=== PATIENT | female | born 1975 ===

== ENCOUNTER 2024-04-17 08:53 | Outpatient (AMB) | payer OTHER, SELFPAY ==
--- NOTE | 2024-04-17 08:57 | A.OFFVIS_ITS ---
Vital Signs 04/17/24 09:03 Height 5 ft 4 in Weight 184 lb 8.43 oz BMI 31.7 BP 136/68 Blood Pressure Location Rt brachial Position Sitting Pulse 67 Pulse Source Pulse Oximeter Pulse Oximetry (%) 96 Oxygen Delivery Method Room Air Intake Visit Reasons: Fibromyalgia Intake Note: New patient, externally referred by [facility], presents to office today for FM. [employer] Required: No Accompanied by: Self / Same As Patient Allergies No Known Allergies Allergy (Verified 04/17/24 09:04) Medication List - Last Reconciled 04/17/24 by Africa Alicea MD cholecalciferol (vitamin D3) 50 mcg PO DAILY duloxetine (Cymbalta) 60 mg PO DAILY ibuprofen 800 mg PO Q8H PRN loratadine 10 mg PO DAILY omeprazole 20 mg PO DAILY sennosides (senna) 8.6 mg PO BID topiramate 100 mg PO BEDTIME topiramate 50 mg PO DAILY HPI Comments Details: This is a 49-year-old female who presents for evaluation of fibromyalgia. Patient states that she has had diffuse pain for about 6 years but she was diag nosed with fibromyalgia about 2 years ago. She was started on duloxetine with some improvement. She was also on gabapentin but she could not tolerate it due to sleepiness. States that she has diffuse pain everywhere, fatigue, headaches, symptoms are worse when she is not active. She states that she used to follow- up with a psychotherapist regularly years ago. Now she only has an appointment every 6 months. She uses a stationary bike times a week. She denies any swollen joints, skin rashes, fevers or weight loss. She denies any history of DVT/PE. She had 3 pregnancies 2 children and 1 . She is unaware of any family history of an autoimmune rheumatic disease [facility] Medical History Vitamin D deficiency Cervical spinal stenosis Snoring Anxiety GERD (gastroesophageal reflux disease) Obesity (BMI 30-39.9) Depression Panic attacks Prediabetes Fibromyalgia Surgical History Hx of tubal ligation H/O: hysterectomy Hx of neck surgery Hx of breast surgery Family History Mother Diabetes Hypertension TIA (transient ischemic attack) Cardiomyopathy Father Colon cancer Sister Diabetes Hypertension Female Reproductive History Menstrual Total pregnancies: 3 Full term: 2 Ab induced: 1 Review of Systems Const Denies fever(s), Reports headache(s), Reports weight gain and Denies weight loss Eyes Reports loss of vision ENT Reports headache(s) Musc Reports back pain, Reports myalgias and Reports arthralgias Neuro Reports headache(s) and Reports loss of vision Psych Reports anxiety Physical Exam Vital Signs: Last Vital Signs Pulse 67 04/17/24 09:03 BP 136/68 04/17/24 09:03 Pulse Ox 96 04/17/24 09:03 Oxygen Delivery Method Room Air 04/17/24 09:03 BMI result Body Mass Index 31.7 Const General: cooperative, healthy appearing and comfortable Nutritional Appearance: obese Orientation/consciousness: patient oriented x3 Limitations: no limitations HEENT Head: Yes normocephalic and Yes atraumatic Mouth: moist mucous membranes Resp Effort & Inspection: normal respiratory effort and able to speak in complete sentences Auscultation: clear to auscultation bilaterally Cardio Rate: regular rate Rhythm: regular rhythm Skin General skin exam: no rashes or lesions noted Neuro General: patient oriented x3 Extrem Other: No active synovitis Mild osteoarthritic changes of both hands with early Ryley's and Heberden's nodes Normal nailfold capillaroscopy Multiple fibromyalgia tender points Assessment & Plan Assessment & Plan (1) Fibromyalgia: Code(s): M79.7 - Fibromyalgia Category: Medical Plan: This is a 49-year-old female was referred for evaluation of fibromyalgia. I do not see any evidence of an autoimmune rheumatic disease. Discussed management of fibromyalgia with patient. Is a noninflammatory, non- autoimmune central afferent processing disorder leading to a diffuse pain syndrome. Advised patient to get more frequent and regular visits with her psychotherapist. Consider psychiatry evaluation. Try to follow sleep hygiene practices. Consider a sleep study to rule out obstructive sleep apnea. Patient uses the stationary back 3 times a week. Advised patient not to stop and consider adding low-impact exercises such as aquatherapy, walking, stretching, yoga. She is on duloxetine 60 mg daily which has helped her. Gabapentin caused side effects. She can continue with duloxetine Follow-up with PCP Plan I spent 25 minutes reviewing patient's chart, evaluating patient, counseling patient and documenting in the chart Coding Level of Care Code New Pt Level 3 (97444) Diagnoses Fibromyalgia M79.7
[2024-04-17 09:03] VITALS: BP 136/68; PULSE 67; O2SAT 96; BMI 31.7
== END 2024-04-17 09:19 | disposition home or self-care (01) ==
PROVIDERS: PCP Internal Medicine; Visit Provider Student in an Organized Health Care Education/Training Program
DX: M79.7 Fibromyalgia (principal)
CPT/HCPCS: 99203

== ENCOUNTER → 2024-04-17 08:53 | Outpatient (BNVA) | payer OTHER, SELFPAY | PROVIDERS: PCP Internal Medicine; Visit Provider Student in an Organized Health Care Education/Training Program ==